=== PATIENT | male | born 1960 | race Two or more races ===

== ENCOUNTER 2021-08-18 10:29 | Emergency (ER) | payer OTHER ==
[~2021-08-18] VITALS: Ht 180.3 cm; Wt 86.2 kg
== END 2021-08-18 12:36 | disposition home or self-care (01) ==
LOC: ER 10:29
DX: H66.92 Otitis media, unspecified, left ear (principal); J06.9 Acute upper respiratory infection, unspecified

== ENCOUNTER 2022-07-24 09:25 | Outpatient (CLI) | payer OTHER | END 2022-07-24 09:29 | disposition home or self-care (01) | LOC: SONOGRAMA 09:25 | PROVIDERS: ATTEND Pathology Anatomic Pathology & Clinical Pathology | DX: D34 Benign neoplasm of thyroid gland (principal); E06.3 Autoimmune thyroiditis ==

== ENCOUNTER 2023-05-07 07:54 | Outpatient (CLI) | payer OTHER | END 2023-05-07 07:55 | disposition home or self-care (01) | LOC: NUCLEAR 07:54 | PROVIDERS: ATTEND Internal Medicine | DX: I73.9 Peripheral vascular disease, unspecified (principal); I87.2 Venous insufficiency (chronic) (peripheral) ==

== ENCOUNTER 2023-05-07 09:39 | Outpatient (CLI) | payer OTHER | END 2023-05-07 09:44 | disposition home or self-care (01) | LOC: RAD 09:39 | PROVIDERS: ATTEND Internal Medicine | DX: J45.909 Unspecified asthma, uncomplicated (principal); M25.552 Pain in left hip; M54.50 Low back pain, unspecified ==

== ENCOUNTER 2023-05-08 09:21 | Outpatient (CLI) | payer OTHER | END 2023-05-08 09:22 | disposition home or self-care (01) | LOC: NUCLEAR 09:21 | PROVIDERS: ATTEND Internal Medicine | DX: I73.9 Peripheral vascular disease, unspecified (principal) ==

== ENCOUNTER 2023-05-18 11:20 | Outpatient (CLI) | payer OTHER | END 2023-05-18 11:27 | disposition home or self-care (01) | LOC: TOM 11:20 | DX: C64.1 Malignant neoplasm of right kidney, except renal pelvis (principal) | CPT/HCPCS: 74177; Q9965 ==

== ENCOUNTER 2023-06-29 12:56 | Outpatient (CLI) | payer OTHER | END 2023-06-29 13:01 | disposition home or self-care (01) | LOC: RAD 12:56 | PROVIDERS: ATTEND Otolaryngology Otology & Neurotology | DX: G52.0 Disorders of olfactory nerve (principal); J34.2 Deviated nasal septum; H83.12 Labyrinthine fistula, left ear | CPT/HCPCS: 70551 ==

== ENCOUNTER 2023-07-21 07:09 | Outpatient (CLI) | payer OTHER | END 2023-07-21 07:11 | disposition home or self-care (01) | LOC: NUCLEAR 07:09 | PROVIDERS: ATTEND Internal Medicine | DX: I20.89 Other forms of angina pectoris (principal); R07.9 Chest pain, unspecified | CPT/HCPCS: 78452; 93017; A9500; J0153 ==

== ENCOUNTER 2023-12-23 09:46 | Outpatient (CLI) | payer OTHER | END 2023-12-23 09:52 | disposition home or self-care (01) | LOC: SONOGRAMA 09:46 | PROVIDERS: ATTEND Internal Medicine | DX: E04.2 Nontoxic multinodular goiter (principal) ==

== ENCOUNTER 2024-02-02 10:54 | Outpatient (CLI) | payer OTHER | END 2024-02-02 11:00 | disposition home or self-care (01) | LOC: SONOGRAMA 10:54 | PROVIDERS: ATTEND Physical Medicine & Rehabilitation | DX: M76.62 Achilles tendinitis, left leg (principal); S96.912A Strain of unspecified muscle and tendon at ankle and foot level, left foot, initial encounter ==

== ENCOUNTER 2024-04-20 07:18 | Outpatient (CLI) | payer OTHER | END 2024-04-20 07:27 | disposition home or self-care (01) | LOC: SONOGRAMA 07:18 | PROVIDERS: ATTEND Internal Medicine | DX: K76.0 Fatty (change of) liver, not elsewhere classified (principal) ==

== ENCOUNTER 2024-05-30 10:42 | Outpatient (CLI) | payer OTHER | END 2024-05-30 10:43 | disposition home or self-care (01) | LOC: RAD 10:42 | PROVIDERS: ATTEND Internal Medicine Pulmonary Disease | DX: J45.30 Mild persistent asthma, uncomplicated (principal) ==

== ENCOUNTER 2024-07-08 06:51 | Outpatient (CLI) | payer OTHER | END 2024-07-08 07:05 | disposition home or self-care (01) | LOC: MRI 06:51 | PROVIDERS: ATTEND Physical Medicine & Rehabilitation | DX: M25.552 Pain in left hip (principal) | CPT/HCPCS: 73721 ==

== ENCOUNTER 2024-10-20 08:46 | Outpatient (CLI) | payer OTHER | END 2024-10-20 08:56 | disposition home or self-care (01) | LOC: TOM 08:46 | PROVIDERS: ATTEND Internal Medicine | DX: M54.2 Cervicalgia (principal); M54.50 Low back pain, unspecified; R10.9 Unspecified abdominal pain | CPT/HCPCS: 72040; 72100; 74177; Q9965 ==

== ENCOUNTER 2024-10-25 08:08 | Outpatient (CLI) | payer OTHER ==
[2024-10-25] MEDS ORDERED: SURFAK240 M1 PO (13:19)
[2024-10-25] MEDS ORDERED: PROBIOTIC1 EAC2 PO (13:19)
== END 2024-10-25 08:09 | disposition home or self-care (01) ==
LOC: SONOGRAMA 08:08
PROVIDERS: ATTEND Internal Medicine
DX: N28.1 Cyst of kidney, acquired (principal); R93.422 Abnormal radiologic findings on diagnostic imaging of left kidney

== ENCOUNTER 2024-10-25 09:34 | Emergency (ER) | payer OTHER ==
[~2024-10-25] VITALS: Ht 167.6 cm; Wt 81.6 kg
[2024-10-25 09:52] VITALS: BP 153/82
[2024-10-25] MEDS ORDERED: 0.9 % SODIUM CHLORIDE 1,000 ML IV ONE (10:15)
[2024-10-25] MEDS ORDERED: FAMOtidine 10 MG/ML (4ML VIAL) IV ONE (10:15)
[2024-10-25 10:40] LABS: BASO % 0.2 % (0.1-1.2); EOS # 0.32 (0.04-0.54); EOS % 6.3 % (0.7-7.0); LYMPH # 1.50 (1.18-3.74); LYMPH % 29.8 % (19.3-53.1); MEAN PLATELET VOLUME 9.70 fl (9.4-12.4); MONO # 0.53 (0.24-0.82); MONO % 10.5 % (4.7-12.5); NEUT # 2.67 (1.56-6.13); NEUT % 53.0 % (34.0-71.1); RED CELL DISTRIBUTION WIDTH 13.0 % (11.6-14.4)
[2024-10-25] MEDS ORDERED: FAMOTIDINE/PF 20 MG/2 ML VIAL ONE (10:42)
[2024-10-25] MEDS ORDERED: BARIUM SULFATE 450 ML ORAL.SUSP PO ONE (10:42)
[2024-10-25 11:07] LABS: ALT/SGPT 41.0 U/L (12-78); AST/SGOT 17.0 U/L (15-37); BILIRUBIN TOTAL 0.7 mg/dL (0.3-1.2); BUN CREA RATIO 10.0 (7.0-25.0); CREATININE SERUM 1.32 mg/dL (0.70-1.30); GFR 54.27; GLOBULINA 4.0 G/DL (2.4-3.5); GLUCOSE FASTING 85.0 mg/dL (65-100); OSMOLALITY SERUM 281.0 MOSM/KG (275-295)
[2024-10-25 11:25] LABS: URINE APPEARANCE Clear; URINE BILIRRUBIN Negative (NEGATIVE); URINE BLOOD Negative; URINE COLOR Yellow; URINE GLUCOSE Negative (NEGATIVE); URINE KETONE Negative (NEGATIVE); URINE LEUKOCYTE Negative; URINE NITRATE Negative; URINE PROTEIN Negative (NEGATIVE); URINE UROBILINOGEN 0.2 E.U./dl
[2024-10-25 11:40] LABS: URINE BACTERIA 0 uL (0.0-1933); URINE CAST 0.00 uL (0.0-1.40); URINE EPITHELIAL CELLS 0.0 uL (0.0-38.8); URINE RBC 0.2 uL (0.0-20.8); URINE WBC 0.9 uL (0.0-23.2)
[2024-10-25 12:20] LABS: INR 1.0
[2024-10-25] MEDS ORDERED: PROBIOTIC1 EAC2 PO (13:19)
[2024-10-25] MEDS ORDERED: SURFAK240 M1 PO (13:19)
[2024-10-25 13:45] VITALS: O2SAT 100
== END 2024-10-25 13:45 | disposition home or self-care (01) ==
LOC: ER 09:34
PROVIDERS: General Practice
DX: K59.00 Constipation, unspecified (principal); K40.90 Unilateral inguinal hernia, without obstruction or gangrene, not specified as recurrent; Z87.09 Personal history of other diseases of the respiratory system
CPT/HCPCS: 36415; 74176; 96365; 99283; J3490

== ENCOUNTER 2024-10-27 00:28 | Emergency (ER) | payer OTHER ==
[~2024-10-27] VITALS: Ht 180.3 cm; Wt 93.9 kg
[~2024-10-27 00:28] MED LIST: PROBIOTIC1 EAC2 PO; SURFAK240 M1 PO
[2024-10-27] MEDS ORDERED: INTESTINEX680 M1 PO (05:02)
[2024-10-27] MEDS ORDERED: MIRALAX510 GM PO (05:02)
== END 2024-10-27 05:11 ==
LOC: ER 01:13
DX: K59.00 Constipation, unspecified (principal); R10.9 Unspecified abdominal pain